=== PATIENT | male | born 1990 | race Caucasian/White ===

== ENCOUNTER 2020-10-29 08:36 | Emergency (ER) | payer OTHER ==
[~2020-10-29] VITALS: Ht 172.7 cm; Wt 81.7 kg
[2020-10-29 08:40] VITALS: BP 145/87
== END 2020-10-29 09:58 | disposition home or self-care (01) ==
LOC: M.ERS 08:36
DX: B34.9 Viral infection, unspecified (principal); Z20.828 Contact with and (suspected) exposure to other viral communicable diseases